=== PATIENT | male | born 1965 | race African-American/Black ===

== ENCOUNTER 2023-09-30 18:27 | Emergency (ER) | payer MEDICAID, SELFPAY ==
[2023-09-30] VITALS (10 sets, daily range): BP systolic 116–144; BP diastolic 72–90; PULSE 114–135; RESP 20–32; TEMP 36.7–37.8; O2SAT 94–97; BMI 34.5
--- NOTE | ~2023-09-30 | XR_ITS ---
EXAMINATION: XR CHEST CLINICAL INFORMATION: Shortness of breath. COMPARISON: None available. TECHNIQUE: Frontal view of the chest was obtained. FINDINGS: The examination is limited secondary to low lung volumes. The cardiac silhouette appears normal in size. The lungs are clear. There is asymmetric elevation of the left side of the diaphragm. There is no pleural effusion or pneumothorax. There is no acute osseous abnormality. XR/XR chest 1V IMPRESSION: Low lung volumes. No consolidation.
--- NOTE | ~2023-09-30 | CT_ITS ---
EXAMINATION: CT ABDOMEN AND PELVIS WITHOUT CONTRAST CLINICAL INFORMATION: Abdominal discomfort. COMPARISON: None available. TECHNIQUE: Multidetector volumetric imaging was performed from the superior aspect of the liver through the pubic symphysis. Sagittal and coronal reformatted images were obtained on the technologist's workstation. This CT examination was performed using dose optimization techniques as appropriate, variously including the following: *Automated exposure control *Adjustment of mA and/or kV according to patient size (this includes techniques or standardized protocols for targeted exams where dose is matched to indication/reason for exam; i.e. extremities or head) *Use of iterative reconstruction technique DLP: 1344 mGy-cm FINDINGS: LUNG BASES: Dependent atelectasis at both lung bases. No significant pleural effusion. LIVER, GALLBLADDER, AND BILIARY TREE: The liver is normal in size, shape, and attenuation. No focal hepatic lesion or biliary ductal dilatation is present. The gallbladder is unremarkable with no evidence of radiopaque gallstones, gallbladder wall thickening, or obvious pericholecystic inflammatory changes. PANCREAS: Unremarkable. SPLEEN: Unremarkable. ADRENAL GLANDS: Unremarkable. KIDNEYS AND URETERS: The kidneys are normal in size, shape, and attenuation. No hydronephrosis, hydroureter, or calculi seen. No perinephric stranding. BLADDER: Bladder is empty. Gibson catheter within the bladder. GASTROINTESTINAL TRACT: No acute abnormality. There is no bowel wall thickening /edema. There is no bowel obstruction. There is a moderate to large volume of stool in the colon. The appendix is normal . The small bowel loops are unremarkable. The stomach is normal. There is no hiatal hernia. ABDOMINAL WALL: No significant hernia is appreciated. LYMPH NODES: Normal. VASCULAR: Unremarkable. PELVIC VISCERA: Unremarkable. OSSEOUS STRUCTURES: Multilevel degenerative spondylosis spine. CT/CT abdomen pelvis wo IV con IMPRESSION: No acute abnormality CT scan abdomen pelvis. Fleischner guidelines were followed.
--- NOTE | 2023-09-30 18:31 | ECG_ITS ---
Test Reason : TACHYCARDIA Blood Pressure : / mmHG Vent. Rate : 132 BPM Atrial Rate : 132 BPM P-R Int : 144 ms QRS Dur : 092 ms QT Int : 308 ms P-R-T Axes : 035 034 061 degrees QTc Int : 456 ms Sinus tachycardia Minimal voltage criteria for LVH, may be normal variant ( Sokolow-Roger ) Nonspecific T wave abnormality Abnormal ECG No previous ECGs available Referred By: Generic ED Physician Electronically Signed By:ZORAIDA BARBER MD
--- NOTE | 2023-09-30 18:47 | ED_ITS ---
HPI - General Adult General Chief complaint: General Medical Stated complaint: cool, diaphoretic, slightly altered from baseline Time Seen by Provider: 09/30/23 18:35 Source: EMS Mode of arrival: EMS History of Present Illness HPI narrative: 57-year-old male who arrives via EMS from [facility], nonverbal at baseline EMS states that they were called for a pale/cool/diaphoretic patient that did not had a bowel movement for 3 days, point of care-126 by EMS and known to have stage 3 kidney disease not currently on dialysis. Related Data Allergies Allergy/AdvReac Type Severity Reaction Status Date / Time Unable to Assess Allergy Verified 09/30/23 18:51 Review of Systems 2 Review of Systems: Yes Unobtainable due to mental condition PMFSH Past Medical History Source: nursing notes reviewed Social History Social History Advance Directives: No Advance Directives Information Provided: No Physical Exam ED Vital Signs: Vital Signs - 24 hr 09/30/23 18:39 09/30/23 19:38 09/30/23 19:54 Temperature 100 F 100.1 F Pulse Rate 135 H 133 H 122 H Respiratory Rate 32 H 30 H 20 Blood Pressure 120/72 135/90 H Pulse Oximetry 95 94 Oxygen Delivery Method Room Air Room Air BMI result Body Mass Index 34.5 VITAL SIGNS: Reviewed. GENERAL: Well developed, well nourished, in no acute distress. HEAD: Normocephalic/atraumatic EYES: PERRLA, EOMI EARS: Ext canals without abnormality NOSE: Nares patent bilateral OROPHARYNX: no oral lesions noted, posterior pharynx clear NECK: Supple, no adenopathy LUNGS: Normal breath sounds. No adventitious sounds or accessory muscle use. SpO2<95> CARDIOVASCULAR: Regular rate and rhythm without noted murmurs ABDOMEN: Soft, non-tender, non-distended with bowel sounds. MUSCULOSKELETAL: No tenderness, deformities, or effusions noted on gross inspection. EXTREMITIES: No cyanosis, clubbing or edema. SKIN: Inspection of the skin reveals no rashes, tactile fever, + diaphoresis NEUROLOGIC: Alert and strength and sensation to light touch were grossly intact x 4. Medications Administered Discontinued Medications Generic Name Dose Route Start Last Admin Trade Name Freq PRN Reason Stop Dose Admin Sodium Chloride 1,000 mls @ 999 mls/hr 09/30/23 19:00 09/30/23 20:08 Ns IV 09/30/23 20:00 999 mls/hr .Q1H1M YANIRA Administration Medical Decision Making Medical Decision Making MDM Narrative: 57-year-old male with history and clinical presentation most consistent diaphoresis and warm to the touch, patient not noted to be pale or cool on clinical exam. He is noted to be tachycardic and expresses discomfort on palpation of the abdomen but otherwise lungs are clear. DDX: viral, ACS, intra- abdominal obstruction I reviewed all investigations and hematologic indices demonstrates a normocytic anemia and no leukocytosis or thrombocytopenia but there are no laboratory values for comparison. Coagulation studies are within normal limits. Chemistry indices indicate CKD which is consistent with patient's known baseline and not felt to be an AL, otherwise there are no electrolyte or liver enzyme derangements other than hyperglycemia. Urinalysis is negative for UTI or hematuria. I sensitivity troponin is detectable, EKG demonstrates sinus tachycardia without evidence of ST elevations. INTERVENTION: 1 L OF IV FLUIDS patient is not febrile. Dr Swift - CXR/CT scan - COVID/Influenza - Dispo Differential Diagnosis Differential Diagnoses: The differential diagnosis associated with the presentation includes Please see the discussion above Admission/Observation Consideration of admission/observation: Escalation of care including admission/observation considered Please see the discussion above Lab Data MDM Lab Attestation statement: I reviewed the patient's lab results. Please see the discussion above 09/30/23 19:29 09/30/23 19:29 Labs: Lab Results 09/30/23 09/30/23 09/30/23 Range/Units 18:36 19:29 19:51 WBC 10.1 (4.8-10.8) X10*3/uL RBC 4.63 (4.60-5.80) X10*6/uL Hgb 12.9 L (14.0-18.0) g/dl Hct 39.9 L (42.0-52.0) % MCV 86.2 (80.0-98.0) fL MCH 27.9 (27.0-33.0) pg MCHC 32.3 (31.0-36.0) g/dl RDW 13.9 (11.0-16.0) % Plt Count 192 (160-400) X10*3/uL MPV 10.5 (9.4-12.4) fL Immature Gran % (Auto) 0.4 (0.0-0.4) % Neut % (Auto) 67.5 (45-73) % Lymph % (Auto) 20.1 (20-40) % [place] % (Auto) 8.1 (2-11) % Eos % (Auto) 3.3 (0-4) % Baso % (Auto) 0.6 (0-2) % Lymph # (Auto) 2.0 (1.2-4.9) X10*3/uL [place] # (Auto) 0.8 (0.1-1.2) X10*3/uL Eos # (Auto) 0.3 (0.0-0.4) X10*3/uL Baso # (Auto) 0.1 (0.0-0.2) X10*3/uL Abs Immat Gran (auto) 0.04 H (0.00-0.03) X10*3/uL Absolute Neuts (auto) 6.8 (2.0-8.3) x10*3/uL Absolute Nucleated RBC 0.000 (0.0-0.012) X10*3/uL Nucleated RBC % (auto) 0.0 (0.0-0.2) /100WBC PT 11.6 (11.1-13.3) SEC INR 1.0 (0.9-1.1) Sodium 137 (135-145) mmol/L Potassium 4.6 (3.3-5.1) mmol/L Chloride 102 (96-108) mmol/L Carbon Dioxide 22 (22-29) mmol/L Anion Gap 18 (12-20) BUN 29 H (9-16) mg/dL Creatinine 1.61 H (0.5-1.4) mg/dL Estim Creat Clear Calc 46.7 Estimated GFR 44 POC Glucose 182 H (60-115) mg/dL Random Glucose 230 H (60-115) mg/dL Lactic Acid 1.9 (0.5-2.0) mmol/L Calcium 9.4 (8.4-10.2) mg/dL Total Bilirubin 0.2 (0.0-1.0) mg/dL AST 12 (5-37) U/L ALT 9 (0-40) U/L Alkaline Phosphatase 120 H (39-117) U/L Troponin I High Sens 9.6 (<3.5-35.0) ng/L Total Protein 7.3 (6.5-8.0) g/dL Albumin 3.8 (3.5-5.0) g/dL Urine Color Yellow Urine Appearance Clear Urine pH 6.0 (5.0-9.0) Ur Specific Abbott 1.010 (1.005-1.025) Urine Protein Negative (Neg-Trace) mg/dL Urine Glucose (UA) Negative (Negative) mg/dL Urine Ketones Negative (Negative) mg/dL Urine Blood Negative (Negative) Urine Nitrite Negative (Negative) Ur Leukocyte Esterase Negative (Negative) Independent Interpretation I performed an independent interpretation of an: EKG Interpretation: Sinus tachycardia, HR-132, no STEMI, NC/QRS/QTC is within normal limits. Discharge Plan Discharge Clinical Impression: Tachycardia, Diaphoresis Patient Disposition: Still a Patient Print Language: Mongolian
[2023-09-30 18:50] LABS: Glucose, Whole Blood 182 mg/dL (60-115)
[2023-09-30 19:35] LABS: MANUAL DIFF FLAG NO
[2023-09-30 19:36] LABS: Basophils Absolute Auto 0.1 X10*3/uL (0.0-0.2); Basophils Percent Auto 0.6 % (0-2); Eosinophils Absolute Auto 0.3 X10*3/uL (0.0-0.4); Eosinophils Percent Auto 3.3 % (0-4); Hematocrit 39.9 % (42.0-52.0); Hemoglobin 12.9 g/dl (14.0-18.0); Imm Gran Abs Auto 0.04 X10*3/uL (0.00-0.03); Imm Gran Pct Auto 0.4 % (0.0-0.4); Lymphocytes Percent Auto 20.1 % (20-40); Mean Corpuscular HGB Conc 32.3 g/dl (31.0-36.0); Mean Corpuscular Hemoglobin 27.9 pg (27.0-33.0); Mean Corpuscular Volume 86.2 fL (80.0-98.0); Mean Platelet Volume 10.5 fL (9.4-12.4); Monocytes Absolute Auto 0.8 X10*3/uL (0.1-1.2); Monocytes Percent Auto 8.1 % (2-11); Neutrophils Absolute Auto 6.8 x10*3/uL (2.0-8.3); Neutrophils Percent Auto 67.5 % (45-73); Platelet Count 192 X10*3/uL (160-400); Red Blood Count 4.63 X10*6/uL (4.60-5.80); Red Cell Distribution Width 13.9 % (11.0-16.0); White Blood Count 10.1 X10*3/uL (4.8-10.8)
[2023-09-30 19:46] LABS: Lactic Acid 1.9 mmol/L (0.5-2.0)
--- NOTE | 2023-09-30 19:47 | MHC.EDTECH ---
This tech took over care of patient at 1900,This tech obtained blood cultures and labs,and sent to lab.Assisted Gi HOLCOMB with a straight cath, 450MLS of yellow urine were obtained and urine sample sent to lab.Hourly rounds and vitals completed,HR 133 Rectal temp 100.1,AICHA Torres and provider made aware.
[2023-09-30 19:48] LABS: Prothrombin Time 11.6 SEC (11.1-13.3)
[2023-09-30 19:51] LABS: Alanine Aminotransferase 9 U/L (0-40); Albumin Level 3.8 g/dL (3.5-5.0); Alkaline Phosphatase 120 U/L (39-117); Anion Gap 18 (12-20); Aspartate Amino Transferase 12 U/L (5-37); Bilirubin Total 0.2 mg/dL (0.0-1.0); Blood Urea Nitrogen 29 mg/dL (9-16); Calcium 9.4 mg/dL (8.4-10.2); Carbon Dioxide 22 mmol/L (22-29); Chloride 102 mmol/L (96-108); Creatinine Clr Calc Pharmacy 46.7; Estimated Glomerular Filt Rate 44; Glucose Random 230 mg/dL (60-115); Potassium 4.6 mmol/L (3.3-5.1); Sodium 137 mmol/L (135-145); Total Protein 7.3 g/dL (6.5-8.0)
[2023-09-30 19:58] LABS: Troponin-I High Sensitivity 9.6 ng/L (<3.5-35.0)
[2023-09-30] MEDS: 0.9 % Sodium Chloride 1,000 ML 999 ML IV ×2 (20:08→22:38)
[2023-09-30 20:21] LABS: Appearance Urine Clear; Color Urine Yellow; Glucose Urine UA Negative (Negative); Leukocyte Esterase Urine Negative (Negative); Nitrite Urine Negative (Negative); Urine Blood Negative (Negative); Urine Ketones Negative (Negative); Urine Protein Negative (Neg-Trace)
[2023-09-30 21:54] LABS: COVID-19 Test Negative (Negative); IDNOW Serial# 08D9AD1C
[2023-09-30 21:55] LABS: Lipase 27 U/L (8-78)
[2023-09-30 21:57] LABS: IDNOW Serial# 152EDE1D; Influenza A Negative (Negative); Influenza B2 Negative (Negative)
[2023-09-30 23:30] LABS: D Dimer High Sensitivity 263 NG/ML
--- NOTE | 2023-10-01 | MHC.EDTECH ---
Hourly rounds and vitals completed,patient was repositioned to comfort. HR is elevated at 116 RN aware call gunter in reach
[2023-10-01 00:04] VITALS: BP 145/88; PULSE 116; RESP 20; TEMP 36.7; O2SAT 97
[2023-10-01 00:48] VITALS: BP 145/88; PULSE 116; RESP 20; TEMP 36.7; O2SAT 97
--- NOTE | 2023-10-01 22:34 | PC.NURSE ---
positive blood culture 1st of 2 anaerobic bottle gram + in clusters in gram stain
== END 2023-10-01 00:50 | disposition home or self-care (01) ==
PROVIDERS: Emergency Medicine; Emergency Provider Student in an Organized Health Care Education/Training Program; PCP Emergency Medicine
DX: R00.0 Tachycardia, unspecified (principal); R61 Generalized hyperhidrosis; R11.0 Nausea; R06.02 Shortness of breath; R10.9 Unspecified abdominal pain; R30.0 Dysuria; Z79.899 Other long term (current) drug therapy; Z11.52 Encounter for screening for COVID-19
CPT/HCPCS: 36415; 51701; 51798; 71045; 74176; 80053; 81003; 82947; 83605; 83690; 84484; 85025; 85379; 85610; 87040; 87147; 87205; 87502; 87635; 93005; 96360; 96361; 99284; 99285

== ENCOUNTER → 2023-09-30 18:31 | Outpatient (BNV) | payer MEDICAID, SELFPAY | PROVIDERS: Emergency Provider Student in an Organized Health Care Education/Training Program; PCP Emergency Medicine; Visit Provider Internal Medicine Cardiovascular Disease | DX: R00.0 Tachycardia, unspecified (principal); R94.31 Abnormal electrocardiogram [ECG] [EKG] | CPT/HCPCS: 93010 ==

== ENCOUNTER 2023-11-16 22:04 | Emergency (ER) | payer MEDICAID, SELFPAY ==
--- NOTE | ~2023-11-16 | XR_ITS ---
EXAMINATION: XR CHEST CLINICAL INFORMATION: Question pneumonia. COMPARISON: 09/30/2023. TECHNIQUE: Portable AP view of the chest was obtained. FINDINGS: The study is limited by portable technique and low lung volumes. Small bibasilar linear densities suggest atelectasis and/or fibrotic streaks. No consolidation, effusion, pneumothorax is seen. The cardiac silhouette is poorly evaluated. Degenerative changes of the spine. XR/XR chest 1V IMPRESSION: Findings as above.
[2023-11-16 22:16] VITALS: BP 137/99; PULSE 112; O2SAT 96
--- NOTE | 2023-11-16 22:19 | ED_ITS ---
HPI - General Adult General Chief complaint: General Medical Stated complaint: Tachycardic and diaphoretic, hx sepsis, sinus tach Time Seen by Provider: 11/16/23 22:18 Source: patient and RN notes reviewed Mode of arrival: EMS Limitations: other (Developmental delay) History of Present Illness ED Provider: lisa MORALES narrative: Patient with developmental delay skhizo affective disorder history of hypertension and chronic kidney disease comes from long term for tachycardia of heart rate of 139 diaphoretic and shaking just prior to arrival patient was seen here on 09/30/2023 had detailed workup done including blood cultures negative for any pathological organism patient's suspected strep viridans but nonpathologic patient was afebrile with normal WBC count since then comes back again for last 24 hours of tachycardia on arrival patient's temperature was 100 Related Data Allergies Allergy/AdvReac Type Severity Reaction Status Date / Time Unable to Assess Allergy Verified 11/16/23 22:25 Review of Systems 2 Review of Systems: Yes Unobtainable due to mental status PMFSH Past Medical History Medical History Hypertension Type 2 diabetes mellitus Chronic kidney disease Developmental delay, moderate Schizoaffective disorder Social History Social History Unable to assess alcohol history related to: Unable to respond Smoked in Last 30 Days: No Advance Directives: Yes Advance Directives on File: Yes Advance Directives Date on File: 09/30/23 Physical Exam ED Vital Signs: Vital Signs - 24 hr 11/16/23 22:20 11/16/23 22:25 11/17/23 00:41 Temperature 98.5 F 98.5 F Pulse Rate 112 H 112 H 108 H Respiratory Rate 16 16 16 Blood Pressure 138/102 H 138/102 H 159/103 H Pulse Oximetry 96 96 95 Oxygen Delivery Method Room Air Room Air Room Air 11/17/23 00:51 11/17/23 03:30 11/17/23 04:01 Temperature 99.0 F 98.5 F 98.5 F Pulse Rate 105 H 105 H 105 H Respiratory Rate 16 14 14 Blood Pressure 155/99 H 150/88 H 150/88 H Pulse Oximetry 95 96 96 Oxygen Delivery Method Room Air Room Air Room Air BMI result Body Mass Index 28.4 Appearance: Alert. Minimal communication. No acute distress. Eyes: PERRLA, No Nystagmus ENT: Pharynx normal. Oral Mucosa moist Neck: Normal inspection. Neck supple. CVS: Normal heart rate and rhythm. Pulses normal. Respiratory: No respiratory distress. Equal air entry bilateral, no wheezing/rales/rhonchi Abdomen: Soft and nontender. Bowel sounds are present, no mass palpable, no CVA tenderness Skin: Skin warm and dry. Normal skin color. Normal skin turgor. Extremities: No lower extremity edema. No calf tenderness Neuro: Alert and awake no distress No motor deficit. No sensory deficit.No cerebellar signs , cranial nerves II-XII intact Medications Administered Discontinued Medications Generic Name Dose Route Start Last Admin Trade Name Freq PRN Reason Stop Dose Admin Acetaminophen 650 mg 11/16/23 22:47 11/16/23 23:09 Acetaminophen 325 Mg Tablet PO 11/16/23 22:48 Not Given ONCE ONE Acetaminophen 650 mg 11/16/23 23:35 11/16/23 23:52 Acetaminophen Supp 650 Mg Supp.Rect ND 11/16/23 23:36 650 mg ONCE ONE Administration Sodium Chloride 1,000 mls @ 999 mls/hr 11/16/23 22:20 11/17/23 00:40 Ns IV 11/16/23 23:20 Infused .Q1H1M ONE Infusion Ceftriaxone Sodium 1 gm/ 50 mls @ 100 mls/hr 11/16/23 23:15 11/17/23 00:02 Sodium Chloride IV 11/16/23 23:44 Infused ONCE ONE Infusion Sodium Chloride 1,000 mls @ 999 mls/hr 11/17/23 02:41 11/17/23 02:41 Ns IV 11/17/23 03:41 999 mls/hr .Q1H1M ONE Administration Ketorolac Tromethamine 30 mg 11/17/23 01:16 11/17/23 01:34 Ketorolac Tromethamine 30 Mg/Ml Vial IVPUSH 11/17/23 01:17 30 mg ONCE ONE Administration Medical Decision Making Medical Decision Making [facility] Narrative: Patient has low-grade fever etiology not very clear blood cultures drawn lactic acid level was normal WBC counts normal COVID flu influenza negative CRP normal patient received Tylenol and Toradol fever improved and tachycardia also improved patient received 2 L of IV fluids at this time etiology of fever is not clear will discharge patient back to long term patient received 1 g of Rocephin prophylactically Differential Diagnosis Differential Diagnoses: The differential diagnosis associated with the presentation includes Bacteremia/viral syndrome/fever Admission/Observation Consideration of admission/observation: Escalation of care including admission/observation considered Lab Data MDM Lab Attestation statement: I reviewed the patient's lab results. 11/16/23 23:04 11/16/23 23:04 Labs: Lab Results 11/16/23 11/16/23 11/16/23 Range/Units 22:23 23:03 23:04 WBC 8.0 (4.8-10.8) X10*3/uL RBC 4.73 (4.60-5.80) X10*6/uL Hgb 13.0 L (14.0-18.0) g/dl Hct 41.1 L (42.0-52.0) % MCV 86.9 (80.0-98.0) fL MCH 27.5 (27.0-33.0) pg MCHC 31.6 (31.0-36.0) g/dl RDW 15.0 (11.0-16.0) % Plt Count 200 (160-400) X10*3/uL MPV 11.1 (9.4-12.4) fL Immature Gran % (Auto) 0.3 (0.0-0.4) % Neut % (Auto) 46.3 (45-73) % Lymph % (Auto) 38.4 (20-40) % [place] % (Auto) 9.7 (2-11) % Eos % (Auto) 4.9 H (0-4) % Baso % (Auto) 0.4 (0-2) % Lymph # (Auto) 3.1 (1.2-4.9) X10*3/uL [place] # (Auto) 0.8 (0.1-1.2) X10*3/uL Eos # (Auto) 0.4 (0.0-0.4) X10*3/uL Baso # (Auto) 0.0 (0.0-0.2) X10*3/uL Abs Immat Gran (auto) 0.02 (0.00-0.03) X10*3/uL Absolute Neuts (auto) 3.7 (2.0-8.3) x10*3/uL Absolute Nucleated RBC 0.000 (0.0-0.012) X10*3/uL Nucleated RBC % (auto) 0.0 (0.0-0.2) /100WBC Sodium 140 (135-145) mmol/L Potassium 4.8 (3.3-5.1) mmol/L Chloride 103 (96-108) mmol/L Carbon Dioxide 27 (22-29) mmol/L Anion Gap 15 (12-20) BUN 20 H (9-16) mg/dL Creatinine 1.73 H (0.5-1.4) mg/dL Estim Creat Clear Calc 48.7 Estimated GFR 41 POC Glucose 166 H (60-115) mg/dL Random Glucose 168 H (60-115) mg/dL Lactic Acid 1.5 (0.5-2.0) mmol/L Calcium 9.8 (8.4-10.2) mg/dL Magnesium 1.6 (1.6-2.6) mg/dL Total Bilirubin 0.3 (0.0-1.0) mg/dL AST 11 (5-37) U/L ALT 6 (0-40) U/L Alkaline Phosphatase 123 H (39-117) U/L C-Reactive Protein 0.47 (< or = 0.50) mg/dL Total Protein 8.1 H (6.5-8.0) g/dL Albumin 4.0 (3.5-5.0) g/dL Urine Color Urine Appearance Urine pH (5.0-9.0) Ur Specific [place] (1.005-1.025) Urine Protein (Neg-Trace) mg/dL Urine Glucose (UA) (Negative) mg/dL Urine Ketones (Negative) mg/dL Urine Blood (Negative) Urine Nitrite (Negative) Ur Leukocyte Esterase (Negative) COVID-19 (BRADLY) (Negative) COVID-19 Clin Com 11/16/23 11/16/23 Range/Units 23:06 23:49 WBC (4.8-10.8) X10*3/uL RBC (4.60-5.80) X10*6/uL Hgb (14.0-18.0) g/dl Hct (42.0-52.0) % MCV (80.0-98.0) fL MCH (27.0-33.0) pg MCHC (31.0-36.0) g/dl RDW (11.0-16.0) % Plt Count (160-400) X10*3/uL MPV (9.4-12.4) fL Immature Gran % (Auto) (0.0-0.4) % Neut % (Auto) (45-73) % Lymph % (Auto) (20-40) % [place] % (Auto) (2-11) % Eos % (Auto) (0-4) % Baso % (Auto) (0-2) % Lymph # (Auto) (1.2-4.9) X10*3/uL [place] # (Auto) (0.1-1.2) X10*3/uL Eos # (Auto) (0.0-0.4) X10*3/uL Baso # (Auto) (0.0-0.2) X10*3/uL Abs Immat Gran (auto) (0.00-0.03) X10*3/uL Absolute Neuts (auto) (2.0-8.3) x10*3/uL Absolute Nucleated RBC (0.0-0.012) X10*3/uL Nucleated RBC % (auto) (0.0-0.2) /100WBC Sodium (135-145) mmol/L Potassium (3.3-5.1) mmol/L Chloride (96-108) mmol/L Carbon Dioxide (22-29) mmol/L Anion Gap (12-20) BUN (9-16) mg/dL Creatinine (0.5-1.4) mg/dL Estim Creat Clear Calc Estimated GFR POC Glucose (60-115) mg/dL Random Glucose (60-115) mg/dL Lactic Acid (0.5-2.0) mmol/L Calcium (8.4-10.2) mg/dL Magnesium (1.6-2.6) mg/dL Total Bilirubin (0.0-1.0) mg/dL AST (5-37) U/L ALT (0-40) U/L Alkaline Phosphatase (39-117) U/L C-Reactive Protein (< or = 0.50) mg/dL Total Protein (6.5-8.0) g/dL Albumin (3.5-5.0) g/dL Urine Color Yellow Urine Appearance Clear Urine pH 5.5 (5.0-9.0) Ur Specific [place] 1.015 (1.005-1.025) Urine Protein Negative (Neg-Trace) mg/dL Urine Glucose (UA) Negative (Negative) mg/dL Urine Ketones Negative (Negative) mg/dL Urine Blood Negative (Negative) Urine Nitrite Negative (Negative) Ur Leukocyte Esterase Negative (Negative) COVID-19 (BRADLY) Negative (Negative) COVID-19 Clin Com See Note Independent Interpretation I performed an independent interpretation of an: Plain X-Ray Radiology Impression Discussion of test interpretation with radiology: I have reviewed the radiologist's reading. Radiologist Impression: [place] [id number] XRay Report Signed Patient: Asim Padgett MR#: [id number] : 1965 Acct:[id number] Age/Sex: 57 / M ADM Date: 11/16/23 Loc: .ED Attending Dr: Ordering Physician: Jamie Whitney MD Date of Service: 11/16/23 Procedure(s): XR chest 1V Accession Number(s): [id number] cc: Jamie Whitney MD~ EXAMINATION: XR CHEST CLINICAL INFORMATION: Question pneumonia. COMPARISON: 09/30/2023. TECHNIQUE: Portable AP view of the chest was obtained. FINDINGS: The study is limited by portable technique and low lung volumes. Small bibasilar linear densities suggest atelectasis and/or fibrotic streaks. No consolidation, effusion, pneumothorax is seen. The cardiac silhouette is poorly evaluated. Degenerative changes of the spine. XR/XR chest 1V IMPRESSION: Findings as above. Discharge Plan Discharge Clinical Impression: Fever Patient Disposition: Xfer SNF Transfer Details: Cause of fever is not clear Tylenol/Motrin for fever blood cultures are done pending the results Instructions: Fever in Adults (ED) Additional Instructions: Keep patient hydrated Tylenol/Motrin for fever Blood cultures are pending Interventions: ED Discharge Assessment Last Done: 11/17/23 04:01 Discharge Date/Time: 11/17/23 04:02 Print Language: Montserratian
[2023-11-16 22:20] VITALS: BP 138/102; PULSE 112; RESP 16; TEMP 36.9; O2SAT 96; BMI 28.4
[2023-11-16 22:25] VITALS: BP 138/102; PULSE 112; RESP 16; TEMP 36.9; O2SAT 96
[2023-11-16 22:27] LABS: Glucose, Whole Blood 166 mg/dL (60-115)
[2023-11-16] MEDS: 0.9 % Sodium Chloride 1,000 ML 999 ML IV (23:07)
[2023-11-16 23:14] LABS: MANUAL DIFF FLAG NO
[2023-11-16 23:15] LABS: Basophils Percent Auto 0.4 % (0-2); Eosinophils Absolute Auto 0.4 X10*3/uL (0.0-0.4); Eosinophils Percent Auto 4.9 % (0-4); Hematocrit 41.1 % (42.0-52.0); Imm Gran Abs Auto 0.02 X10*3/uL (0.00-0.03); Imm Gran Pct Auto 0.3 % (0.0-0.4); Lymphocytes Absolute Auto 3.1 X10*3/uL (1.2-4.9); Lymphocytes Percent Auto 38.4 % (20-40); Mean Corpuscular HGB Conc 31.6 g/dl (31.0-36.0); Mean Corpuscular Hemoglobin 27.5 pg (27.0-33.0); Mean Corpuscular Volume 86.9 fL (80.0-98.0); Mean Platelet Volume 11.1 fL (9.4-12.4); Monocytes Absolute Auto 0.8 X10*3/uL (0.1-1.2); Monocytes Percent Auto 9.7 % (2-11); Neutrophils Absolute Auto 3.7 x10*3/uL (2.0-8.3); Neutrophils Percent Auto 46.3 % (45-73); Platelet Count 200 X10*3/uL (160-400); Red Blood Count 4.73 X10*6/uL (4.60-5.80)
[2023-11-16 23:23] LABS: Lactic Acid 1.5 mmol/L (0.5-2.0)
[2023-11-16 23:28] LABS: Alanine Aminotransferase 6 U/L (0-40); Alkaline Phosphatase 123 U/L (39-117); Anion Gap 15 (12-20); Aspartate Amino Transferase 11 U/L (5-37); Bilirubin Total 0.3 mg/dL (0.0-1.0); Blood Urea Nitrogen 20 mg/dL (9-16); C Reactive Protein 0.47 mg/dL (< or = 0.50); Calcium 9.8 mg/dL (8.4-10.2); Carbon Dioxide 27 mmol/L (22-29); Chloride 103 mmol/L (96-108); Creatinine Clr Calc Pharmacy 48.7; Estimated Glomerular Filt Rate 41; Glucose Random 168 mg/dL (60-115); Magnesium 1.6 mg/dL (1.6-2.6); Potassium 4.8 mmol/L (3.3-5.1); Sodium 140 mmol/L (135-145); Total Protein 8.1 g/dL (6.5-8.0)
[2023-11-16] MEDS: cefTRIAXone sodium 1 GM in 0.9 % Sodium Chloride 50 ML IV (23:32)
[2023-11-16 23:43] LABS: COVID-19 Test Negative (Negative); IDNOW Serial# 08D9AD1C
[2023-11-16] MEDS: Acetaminophen Supp 650 MG SUPP.RECT PR (23:52)
[2023-11-17] LABS: Appearance Urine Clear; Color Urine Yellow; Glucose Urine UA Negative (Negative); Leukocyte Esterase Urine Negative (Negative); Nitrite Urine Negative (Negative); PH 5.5 (5.0-9.0); Specific Gravity - Urine 1.015 (1.005-1.025); Urine Blood Negative (Negative); Urine Ketones Negative (Negative); Urine Protein Negative (Neg-Trace)
[2023-11-17 00:41] VITALS: BP 159/103; PULSE 108; RESP 16; O2SAT 95
[2023-11-17 00:51] VITALS: BP 155/99; PULSE 105; RESP 16; TEMP 37.2; O2SAT 95
[2023-11-17] MEDS: Ketorolac Tromethamine 30 MG/ML VIAL IVPUSH (01:34)
[2023-11-17] MEDS: 0.9 % Sodium Chloride 1,000 ML 999 ML IV (02:41)
[2023-11-17 03:30] VITALS: BP 150/88; PULSE 105; RESP 14; TEMP 36.9; O2SAT 96
[2023-11-17 04:01] VITALS: BP 150/88; PULSE 105; RESP 14; TEMP 36.9; O2SAT 96
== END 2023-11-17 04:02 | disposition skilled nursing facility (03) ==
PROVIDERS: Emergency Provider Internal Medicine; PCP Emergency Medicine
DX: R50.9 Fever, unspecified (principal); R00.0 Tachycardia, unspecified; E11.9 Type 2 diabetes mellitus without complications; I10 Essential (primary) hypertension; Z11.52 Encounter for screening for COVID-19
CPT/HCPCS: 36415; 71045; 80053; 81003; 82947; 83605; 83735; 85025; 86140; 87040; 87147; 87205; 87635; 96361; 96365; 96375; 99284; 99285; J0696; J1885